=== PATIENT | male | born 1935 | race Caucasian/White ===

== ENCOUNTER → 2017-01-03 | Day surgery (SDC) | payer MEDICARE, BC ==
[~2017-01-03] MED LIST: ALLOPURINOL300 MG PO; ARICEPT5 MG PO; ARIXTRA7.5 MG/0.6 SQ; ASPIRIN325 M1 PO; ASPIRIN81 M2 PO; BAYER ASPIRIN325 M1 PO; CARVEDILOL3.125 MG PO; COUMADIN2.5 MG PO; COUMADIN5 MG PO; COUMADIN7.5 MG PO; FAMOTIDINE20 M1 PO; FLOMAX0.4 M1 PO; HEARTBURN RELIE10 M1 PO; HYDROCHLOROTHIA25 MG PO; HYDROCODON-ACE1 EAC5 PO; HYDROCODON-ACE1 EAC7 PO; HYTRIN2 M1 PO; HYTRIN2 MG PO; LASIX20 MG PO; LISINOPRIL PO; LISINOPRIL5 MG PO; LOSARTAN POTASS50 MG PO; NITROSTAT0.4 MG SL; PENICILLIN V P500 MG PO; PLAVIX PO; PRAVACHOL20 MG PO; RELAFEN500 MG PO; RIVASTIGMINE3 MG PO; TYLENOL PM EX-1 EAC1 PO; TYLENOL PM EX-S1 TA4 PO; TYLENOL WITH C1 EACH PO; TYLENOL/CODEINE1 TAB PO; UNK BP MED; UNK CHOLESTEROL MED; XARELTO15 MG PO; XARELTO20 MG PO; ZESTRIL5 MG PO; ZYLOPRIM100 MG PO
--- NOTE | ~2017-01-03 | OR ---
Unit #: [id number] #: [id number] Patient: MATTHEW LIANG [id number] [address] [place], [place] [address] [id number] MR#: [id number] NAME: MATTHEW LIANG ROOM: Date of Procedure: 01/03/2017 Admission Date: 01/03/2017 Surgeon: Garrett Lindsey M.D. : 1935 Attending Physician: Garrett Lindsey M.D. Primary Care Physician: Ari Bundy M.D. OPERATIVE REPORT PREOPERATIVE DIAGNOSES Back pain, radiculopathy, spinal stenosis, spondylolisthesis, degenerative lumbar disk disease. POSTOPERATIVE DIAGNOSES Back pain, radiculopathy, spinal stenosis, spondylolisthesis, degenerative lumbar disk disease. PROCEDURES PERFORMED Lumbar epidural steroid injection with fluoroscopic guidance for needle localization. INDICATIONS FOR PROCEDURE The patient is an 81-year-old male with bilateral hip and lower extremity pain and worsening back pain due to grade 2 spondylolisthesis, significant stenosis with degenerative changes to his lumbar spine. He is not a surgical candidate. He is treated medically with p.r.n. epidural steroid injections. Last injection was done about 6 weeks ago, gave him significant improvement. He was felt to have a bitter return of his symptom complex. The plan is to repeat a second injection at this point. DESCRIPTION OF PROCEDURE The patient was placed in a seated position. Standard monitors were applied. Sterile prep and drape of the lumbar area was then performed. The skin then at the L3-L4 level was localized with 1% lidocaine. An 18-gauge Hustead needle was then advanced via loss of resistance technique and fluoroscopic guidance in toward the epidural space. The patient did not complain of any pain or paresthesia during needle advancement. After confirming proper positioning, a dose of 80 mg of Depo-Medrol and 6 mL of 0.125% bupivacaine were deposited. The patient tolerated the procedure well and was discharged to the recovery room in stable condition. Dictated by... Garrett Lindsey M.D. LHP/modl TD: 01/03/2017 23:59 JOB #: [id number] Unit #: [id number] #: [id number] Patient: MATTHEW LIANG OPERATIVE REPORT X Garrett Lindsey MD X PROCEDURE OPERATIVE NOTE
== END | disposition home or self-care (01) ==
LOC: CCSC 06:32
DX: M51.16 Intervertebral disc disorders with radiculopathy, lumbar region (principal); M48.06 Spinal stenosis, lumbar region; M43.16 Spondylolisthesis, lumbar region
CPT/HCPCS: J1040; J2250